=== PATIENT | male | born 1985 | race Caucasian/White ===

== ENCOUNTER 2020-07-17 16:12 | Outpatient (CLI) | payer OTHER, SELFPAY | END 2020-07-17 16:13 | disposition home or self-care (01) | LOC: ANHCOVIDVC 16:12 | DX: Z23 Encounter for immunization (principal) | CPT/HCPCS: 0001A; 91300 ==

== ENCOUNTER 2020-08-07 16:12 | Outpatient (CLI) | payer OTHER, SELFPAY | END 2020-08-07 16:13 | disposition home or self-care (01) | LOC: ANHCOVIDVC 16:12 | DX: Z23 Encounter for immunization (principal) | CPT/HCPCS: 0002A; 91300 ==

== ENCOUNTER 2022-05-16 01:16 | Day surgery (SDC) | payer OTHER, SELFPAY ==
[2022-05-03 09:41] VITALS: BMI 33.4
--- NOTE | 2022-05-03 09:45 | PC.NURSE ---
Report to the Outpatient Waiting Room, entrance under the green pavilion located off [facility], at time 11:30am on date 05-16-22. Planned Procedure Time: 1:30pm. Time changes happen often and if your time is changed the preop area will call you the afternoon before. - You and your visitor will be asked to self-screen and do not enter if you have any COVID symptoms. - Only one visitor is requested with a max of two and NO children visitors are allowed at this time. - The patient visitor may be requested to leave or wait in car when not with patient due to distancing restrictions. - A mask is optional within the hospital at this time. Patients may have clear liquids (water, carbonated beverages, clear teas, apple juice) until 3 hours prior to surgery (10:30am) with a maximum of 20 ounces. - No food from midnight until time of surgery Take the following medications with a SIP of water the morning of surgery: N/A DO NOT STOP ANY OF YOUR OTHER PRESCRIPTION MEDICATIONS PRIOR TO SURGERY EXCEPT THE FOLLOWING Medications to discontinue per physician N/A Please no make-up, nail czech, hairspray, perfume, deodorant, or body powder the day of surgery. No jewelry (including any body piercings) or valuables the day of surgery, leave them at home. Please take a shower or bath the night before, or the morning of, surgery with an antibacterial soap. Wear comfortable, loose fitting clothing. Children are encouraged to wear pajamas. - Jewelry must be removed prior to entering the operating room. Rings and piercings that are not removed may be cut off. - The hospital will not accept responsibility for valuables. - Please leave all valuables, including medications, at home the day of surgery. If you are going home after surgery, a licensed cab driver must drive you home. - NO public transportation without another adult if you receive anesthesia. - We recommend that an adult stay with you for 24 hours following discharge. - We also recommend that you do not drive, make important decision, drink alcoholic beverages, or take any drugs that were not prescribed by your health care provider for at least 24 hours after your discharge time. Follow any additional instructions given to you from your surgeon. If you or anyone in your household have experienced Covid symptoms in the past week, please notify your surgeon or the nurse liaison at the phone number below for possible testing. Telephone instructions given to PATIENT and asked if any additional questions and then verbalized understanding. Patient advised to call surgeon office or pre surgery nurse liaison [phone] if any additional questions.
[2022-05-16] VITALS (7 sets, daily range): BP systolic 103–118; BP diastolic 54–75; PULSE 62–77; RESP 11–14; TEMP 36.5; O2SAT 95–98
[2022-05-16] MEDS: ACETAMINOPHEN 500 MG TABLET 1000 MG PO (12:15)
[2022-05-16] MEDS: KETOROLAC 15 MG/ML VIAL (*BKC) IV PUSH (12:20)
--- NOTE | 2022-05-16 12:24 | P.PNAN_ITS ---
Anes - Initial Pre Proc Eval Procedure: Operation Date: 05/16/22 13:30 Proposed Procedures p Open Umbilical Hernia Repair with Possible Mesh - Jamshid Dimas DO Date/Time: 05/16/22 12:24 Surgeon: Jamshid Dimas DO Pre Op Diagnosis: Umb Hernia Patient Data Age: 36 Gender: M Height: 1.68 m Weight: 94.1 kg Allergies Allergy/AdvReac Type Severity Reaction Status Date / Time carrot Allergy Mild Swelling Verified 05/03/22 09:39 Home Medications Medication Instructions Recorded Confirmed Type No Home Medications 04/11/22 05/03/22 History Patient hx anesthesia problems: none Family hx anesthesia problems: none Results Review: All pre-operative results and documents have been reviewed as part of the pre- operative evaluation. [facility] Surgical History Surgical History History of appendectomy Family History Family History Other Cancer Social History Social History Smoking packs per day: 1 Smoking cigarettes per day: 20.0 Years smoked: 10 Smoking pack-years: 10.00 Smoking status: Current every day smoker Tobacco type: cigarettes Second hand tobacco smoke exposure: No Alcohol intake: current Drinks per week: 1 Alcohol use details: social Substance use: never Substance use type: does not use Living arrangements: with family Spiritual care concerns: No Anes - Eval Final PreProcedure Day of Procedure 05/16/22 12:24 Patient weight: obese Heart: regular rate and rhythm Lungs: clear to auscultation Airway: Mallampati scale class II Neurological: alert and oriented Last oral intake: >/= 8 hours ASA classification: II Emergent: no Anesthetic plan: proceed Anesthesia type and monitoring: general LMA and standard monitoring Results Review: All pre-operative results and documents have been reviewed as part of the pre- operative evaluation. Informed Consent: The patient's anesthetic plan and its attendant risks and benefits were discussed with the patient/family/POA. Questions were solicited and answers provided to the satisfaction of the patient/family/POA.
[2022-05-16] MEDS: LACTATED RINGERS 1,000 ML 30 ML IV CONT ×2 (12:26→15:09)
--- NOTE | 2022-05-16 13:19 | WPDHPUPDATE1 ---
History and Physical Update Update Date/Time: 05/16/22 13:19 History and Physical has been reviewed, including an updated exam of the patient. There are NO changes in the patient's condition. Risks, benefits, and alternatives have been discussed and questions answered. Patient agrees to proceed with procedure.
--- NOTE | 2022-05-16 13:19 | PM.IMHP ---
H&P: HPI History of Present Illness Date/Time: 05/16/22 13:19 Chief Complaint: Umbilical hernia Narrative: This is a 36-year-old man who presents with an umbilical hernia. Now presents for umbilical hernia repair. He denies any changes since last seen in the office. Review of Systems Review of Systems: All systems reviewed & are unremarkable except as noted in HPI and below Constitutional: Constitutional: Denies chills, Denies fever(s), Denies headache(s) and Denies weight loss Eyes: Eyes: Denies change in vision ENT: Denies dizziness, Denies headache(s), Denies neck mass and Denies throat swelling Cardiovascular: Cardiovascular: Denies chest pain, Denies lightheadedness and Denies dyspnea Respiratory: Respiratory: Denies cough, Denies dyspnea and Denies wheezing Gastrointestinal: Gastrointestinal: Denies abdominal pain, Denies change in bowel habits, Denies nausea and Denies vomiting Genitourinary: Genitourinary: Denies hematuria and Denies dysuria Musculoskeletal: Musculoskeletal: Reports as per HPI Integumentary/Breasts: Skin/Breast: Reports as per HPI Neurologic: Denies dizziness and Denies headache(s) Allergic/Immunologic: Allergic/Immunologic: Denies throat swelling and Denies wheezing PMFSH Surgical History Surgical History History of appendectomy Family History Family History Other Cancer Social History Social History Smoking packs per day: 1 Smoking cigarettes per day: 20.0 Years smoked: 10 Smoking pack-years: 10.00 Smoking status: Current every day smoker Tobacco type: cigarettes Second hand tobacco smoke exposure: No Alcohol intake: current Drinks per week: 1 Alcohol use details: social Substance use: never Substance use type: does not use Living arrangements: with family Spiritual care concerns: No Meds Home Medications and Allergies Home Medications Medication Instructions Recorded Confirmed Type No Home Medications 04/11/22 05/03/22 History Allergies Allergy/AdvReac Type Severity Reaction Status Date / Time carrot Allergy Mild Swelling Verified 05/16/22 12:27 Exam Const: General: no acute distress and alert Orientation/consciousness: patient oriented x3 HENMT: Head: normocephalic and atraumatic Ears: hearing grossly normal bilaterally Face/Nose/Sinus: Normal nares present Mouth: Yes Normal oral and palatal mucosa present Eyes: Periorbital: periorbital findings normal Sclera: sclerae normal EOM: EOMs intact bilaterally Neck: Neck: normal visual inspection, no lymphadenopathy and trachea midline Chest: Chest palpation & inspection: normal inspection of the chest Resp: Effort & Inspection: normal respiratory effort Auscultation: clear to auscultation bilaterally Cardio: Jugular venous distension: no JVD Rate: regular rate Rhythm: regular rhythm Heart sounds: S1 normal heart sound present and S2 normal heart sound present Peripheral pulses: Peripheral pulses 2+ throughout GI: Inspection: normal to inspection GI Palp: Yes Soft to palpation, No Tenderness to palpation present (GI), No Guarding due to palpation present (GI), Yes Hernia present (Umbilical) and No Rebound tenderness present Percussion: Yes normal to percussion Auscultation: normal bowel sounds : General: Yes no CVA tenderness Back/Spine/Pelvis: Back: no CVA tenderness Neuro: General: patient oriented x3, no focal motor deficits and CN's II-XI intact bilaterally Cognition (Neuro): normal cognition Speech: normal speech Motor exam (neuro): 5/5 motor strength present throughout Extrem: General: capillary refill normal and no clubbing, cyanosis or edema Assessment and Plan Assessment and plan (1) Umbilical hernia without mention of obstruction or gangrene: Code(s): K42.9 - Umbilical he
[2022-05-16] MEDS: ceFAZolin 2 GM/D5W 50 ML 2 GM/50 ML BAG IVPB (13:36)
[2022-05-16] MEDS: BUPIVACAINE/EPINEPHRINE 0.5% 10 ML VIAL 30 ML INFILTRATE (14:11)
--- NOTE | 2022-05-16 14:23 | W.PM.PROC2 ---
Procedure Note - Detailed Date of Procedure 05/16/22 Pre-op Diagnosis Umbilical hernia Post-op Diagnosis Same (1cm Umbilical hernia) Procedure Performed Open 1 cm Umbilical hernia repair with 6.[address] hernia patch Surgeon Jamshid Dimas, DO Anesthesia General and Local (0.5% bupivacaine with epinephrine) Indications This is a 36-year-old man who presented with an umbilical bulge that he 1st noticed about 10 years ago. He has had some discomfort with activities but is able to reducible trimming down. He was found to have a reducible 1 cm umbilical hernia on physical exam. Discussions were made with the patient about treatment options and decision was made to proceed with open umbilical hernia repair with possible mesh. Findings Open umbilical hernia repair was performed. The patient was found to have a 1 cm umbilical hernia containing some fatty tissue. The hernia sac was excised and sent to the lab for pathology. A 6.[address] hernia patch was chosen to repair the hernia. The mesh was placed within a preperitoneal pocket was created then the mesh was secured with the fascial closure using 0 Ethibond [id number] sutures. Description of Procedure Procedure as well as risks, benefits, and alternatives were discussed with the patient. Written consent was obtained and placed in chart prior to procedure. Patient was brought back to surgical suite. He was placed supine on operating table. He was then intubated by Anesthesia Department. He is abdomen was prepped and draped in sterile fashion using chlorhexidine prep. 0.5% bupivacaine with epinephrine was infiltrated locally around the operative area. A 4 cm curvilinear incision was made just inferior to the umbilicus using a 15 blade scalpel. Electrocautery was used for hemostasis and for dissection down through the subcutaneous fat. Hernia sac was encountered and this was carefully freed up from surrounding subcutaneous fat using electrocautery. The hernia sac was freed up all the way down to the level of the fascia, and then it was transected using electrocautery. The hernia sac was sent to the lab for pathology. The umbilical stalk was then lifted off of the fascia with electrocautery. The hernia defect was then measured. This was measuring approximately 10 mm. The decision was made to use a 6.[address] hernia patch. The peritoneum was cleared under the fascia circumferentially around the hernia using blunt dissection and electrocautery. Once a wide enough pocket was created for the mesh, the mesh was then placed within this preperitoneal pocket and laid out flat centered on the hernia defect. The mesh appeared to be sitting in proper position. The mesh was then secured to the fascia with the fascial closure using 0 Ethibond [id number] sutures. A total of 3 sutures were placed transversely to approximate the fascia and close the hernia defect. The sutures were tied down in place. The repair was inspected and appeared secure. 0.5% bupivacaine with epinephrine was infiltrated around the fascia and subcutaneous space. The umbilical stalk was then reapproximated to the fascia using a 3 0 Vicryl simple interrupted suture. The deep dermis was reapproximated using 3 0 Vicryl simple interrupted sutures, and then the skin was approximated using 4 Monocryl running subcuticular suture. Exofin glue was then applied on top. The patient was then awakened from anesthesia, extubated, and transferred to recovery. Implants 6.[address] hernia patch Estimated Blood Loss 5 Pathology Yes (Hernia sac) Complications No immediate complications Condition Stable Disposition Same day [facility] Billing Surgery - Charge Forward: Surgery Billing
[2022-05-16] MEDS: oxyCODONE HCL (*CRX) 5 MG TAB IR PO (15:58)
== END 2022-05-16 16:28 | disposition home or self-care (01) ==
PROVIDERS: Visit Provider Surgery
PROC: (CPT 49591; principal; 2022-05-16 13:30)
DX: K42.9 Umbilical hernia without obstruction or gangrene (principal); F17.210 Nicotine dependence, cigarettes, uncomplicated; E66.9 Obesity, unspecified; Z68.33 Body mass index [BMI] 33.0-33.9, adult
CPT/HCPCS: 49591; 88302; A9270; C1781; J0690; J1100; J1885; J2250; J2405; J2704; J3010; J7120

== ENCOUNTER 2023-10-22 11:59 | Emergency (ER) | payer OTHER, SELFPAY ==
[2023-10-22 12:10] VITALS: BP 149/84; PULSE 73; RESP 16; TEMP 36.6; O2SAT 98
--- NOTE | 2023-10-22 12:21 | ED.URI ---
HPI - URI/Sore Throat General Chief Complaint: Upper Respiratory Infection Stated Complaint: Sore Throat Time Seen by Provider: 10/22/23 12:01 Source: patient Mode of arrival: ambulatory Limitations: no limitations History of Present Illness HPI Narrative: Antione is a 38-year-old male patient presenting to the clinic today with complaints of nasal congestion, sore throat, and neck pain for the past 2 days. Reports that he has had exposure to strep pharyngitis. States that his had strep for the past week and has been taking antibiotics. He denies any known fever or chills. He denies a cough. No chest pain or shortness of breath. MD elicited complaint: sore throat and nasal congestion Related Data Home Medications Medication Instructions Recorded Confirmed No Home Medications 05/30/22 10/22/23 Allergies Allergy/AdvReac Type Severity Reaction Status Date / Time carrot Allergy Mild Swelling Verified 10/22/23 12:01 Review of Systems Review of Systems: Pertinent positives per HPI. Patient denies any fever, chills, rash, headache, visual changes, dizziness, cough, shortness of breath, chest pain, palpitations, nausea, vomiting, diarrhea, constipation, abdominal pain, or any urinary issues. PMFSH Surgical History Surgical History H/O umbilical hernia repair open 1 cm umbilical hernia repair w/ 6.[address] hernia patch 05/16/22 History of appendectomy Family History Family History Other Cancer Social History Social History Smoking packs per day: 1 Smoking cigarettes per day: 20.0 Years smoked: 10 Smoking pack-years: 10.00 Smoking status: Current every day smoker Tobacco type: cigarettes Second hand tobacco smoke exposure: No Alcohol intake: current Drinks per week: 1 Alcohol use details: social Substance use: never Substance use type: does not use Living arrangements: with family Spiritual care concerns: No Comments At the time of my signature, I reviewed and agree with the nursing past medical, surgical, social, and family history. There is no relevant family history pertinent to the patient complaint. Exam Narrative: General: Well-developed, well nourished, in no apparent distress Head: Normocephalic, atraumatic Eyes: Pupils equally round and reactive to light bilaterally, EOM intact, sclera and conjunctive clear, no discharge, lids normal Ears: TMs intact and clear, ear canals clear, no drainage, grossly hearing normal. Nose: Nares patent, no discharge, no inflammation, no sinus tenderness. Mouth: Oral pharynx mildly red without lesions or masses, good dentition, MMM. Neck: Supple, trachea midline, no enlargement of anterior or posterior cervical nodes, no thyroid masses or goiter palpable. Cardio: Regular rate and rhythm, s1 and s2 normal, no murmur appreciated. Resp: Clear to auscultation bilaterally, no rhonchi, rales, wheezing or rubs Course Course Emergency Course: Portions of this record may have been created with voice recognition software. Level of Care: Express Care Visit Vital Signs Vital signs: Vital Signs Temperature 36.6 C 10/22/23 12:10 Pulse Rate 73 10/22/23 12:10 Respiratory Rate 16 10/22/23 12:10 Blood Pressure 149/84 H 10/22/23 12:10 Pulse Oximetry 98 10/22/23 12:10 Oxygen Delivery Room Air 10/22/23 12:10 Temperature 36.6 C 10/22/23 12:10 Pulse Rate 73 10/22/23 12:10 Respiratory Rate 16 10/22/23 12:10 Blood Pressure 149/84 H 10/22/23 12:10 Pulse Oximetry 98 10/22/23 12:10 Oxygen Delivery Room Air 10/22/23 12:10 Vital signs reviewed MDM - URI/Sore Throat MDM Narrative Medical decision making narrative: At the time of visit patient is resting comfortably on the exam table. Patient appears to be n
[2023-10-22 12:23] LABS: EDSTREPNEGPOS1 Presumptive Negative
== END 2023-10-22 12:30 | disposition home or self-care (01) ==
PROVIDERS: Emergency Provider Nurse Practitioner Family
DX: J02.9 Acute pharyngitis, unspecified (principal); F17.210 Nicotine dependence, cigarettes, uncomplicated
CPT/HCPCS: 87081; 87880; 99213; G0463